=== PATIENT | male | born 1980 | race Caucasian/White ===

== ENCOUNTER 2020-07-22 17:19 | Emergency (ER) | payer SELFPAY ==
--- OUTSIDE RECORDS SUMMARY | 2020-07-22 17:21 | XMS REPORT | Continuity of Care Document ---
:1980 Author Organization [facility] t Address [address] [place] [address] Care Team Providers Name Role Phone Unavailable Unavailable Unavailable Problems Condition Condition Condition Status Onset Resolution Last Treating Co mments Source Name Details Category Date Date Treatment Clinician Date Abrasion Abrasion Disease Active Harri s of head of head Health Allergies, Adverse Reactions, Alerts This patient has no known allergies or adverse reactions. Social History Social Habit Start Date Stop Date Quantity Comments Source Sex Assigned At [facility] Health Medications This patient has no known medications. Procedures This patient has no known procedures. Plan of Care Planned Activity Planned Date Details Comments Source Future Scheduled Test 2020-04-18 00:00:00 IMM Influenza [facility] Seasonal Apr to September (>/= 19 yrs) [code = IMM Influenza Seasonal Apr to September (>/= 19 yrs)] Encounters Start End Encounter Admission Attending Care Care Encounter Source Date/Time Date/Time Type Type Clinicians Facility Department ID 2019-04-29 2019-04-29 Emergency [facility] [id number] [address] [place] [address] 17:17:15 17:17:15 Health Results This patient has no known results.
--- OUTSIDE RECORDS SUMMARY | 2020-07-22 17:21 | XMS REPORT | Clinical Summary ---
:1980 Author Organization [facility] ict Address [facility] [place] [address] Care Team Providers Name Role Phone Unavailable Primary Care Provider Unavailable Allergies No Known Active Allergies Medications Not on file Active Problems Problem Noted Date Abrasion of head Social History Tobacco Use Types Packs/Day Years Used Date Never Assessed Sex Assigned at Date Recorded Not on file Last Filed Vital Signs Not on file Plan of Treatment Health Maintenance Due Date Last Done Comments IMM Influenza Seasonal Apr to September (>/= 19 yrs) 04/18/2020 Results Not on fileafter 07/22/2019 Insurance Payer Benefit Plan / Subscriber ID Effective Phone Address [facility] [id number] 2017-Pres [phone] [address] [employer] [address] [phone] [place] [address]
--- NOTE | 2020-07-22 21:47 | ER ---
Nurse's Notes [facility] Name: Deion Monk Age: 40 yrs Sex: Male : 1980 Arrival Date: 07/22/2020 Time: 17:21 Bed 18 Private MD: Diagnosis: Presentation: 07/22 17:43 Chief complaint: Patient states: spider bite to the RLE x 2 days ago, reports increase sv in swelling and redness. Coronavirus screen: Client denies travel out of the [place] in the last 14 days. At this time, the client does not indicate any symptoms associated with coronavirus-19. Ebola Screen: No symptoms or risks identified at this time. Risk Assessment: Do you want to hurt yourself or someone else? Patient reports no desire to harm self or others. Onset of symptoms was July 20, 2020. 17:43 Method Of Arrival: Ambulatory sv 17:43 Acuity: GELA 3 sv 17:44 Initial Sepsis Screen: Does the patient meet any 2 criteria? No. Patient's initial sv sepsis screen is negative. Does the patient have a suspected source of infection? No. Patient's initial sepsis screen is negative. Triage Assessment: 17:44 General: Appears in no apparent distress. uncomfortable, Behavior is calm, cooperative, sv appropriate for age. Pain: Complains of pain in right leg. Neuro: Level of Consciousness is awake, alert, obeys commands, Oriented to person, place, time, situation, Gait is steady. Respiratory: Respiratory effort is even, unlabored. Historical: - Allergies: 17:44 No Known Allergies; sv - PMHx: 17:44 liver problem; sv - PSHx: 17:44 abdominal surgery; sv Vital Signs: 17:44 BP 124 / 72; Pulse 76; Resp 18; Temp 98.2(TE); Pulse Ox 99% on R/A; Weight 70.31 kg; sv Height 5 ft. 11 in. (180.34 cm); 17:44 Body Mass Index 21.62 (70.31 kg, 180.34 cm) sv ED Course: 17:21 Patient arrived in ED. rg4 17:43 Arm band placed on. sv 17:44 Triage completed. sv 21:46 Naren Ashley MD is Attending Physician. rn 21:46 Patient's name was called from ER lobby. No response. Unable to locate patient. Will ca1 disposition as left without being seen by a provider. Administered Medications: No medications were administered Outcome: 21:46 Patient left the ED. ca1 Signatures: Vaishali Dyer RN RN sv Nieto, Roman, MD MD rn Garcia, Christine rg4 Michelle Dorsey RN RN ca1 Corrections: (The following items were deleted from the chart) 17:46 17:44 Pulse 76bpm; Resp 18bpm; Pulse Ox 99%; Temp 98.2F; 70.31 kg; Height 5 ft. 11 in.; sv BMI: 21.6; sv
[2020-07-22 22:05] VITALS: BP 124/72; TEMP 98.2; O2SAT 99
== END 2020-07-22 21:46 | disposition left against medical advice (07) ==
LOC: ER 17:19
DX: Z53.21 Procedure and treatment not carried out due to patient leaving prior to being seen by health care provider (principal)
CPT/HCPCS: 99281